=== PATIENT | female | born 2005 | race Caucasian/White ===

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

== ENCOUNTER 2025-08-08 01:59 | Emergency (ER) | payer OTHER ==
[~2025-08-08] VITALS: Ht 157.5 cm; Wt 65.8 kg
[2025-08-08] MEDS ORDERED: Albuterol 2.5 MG/3 ML VIAL INH SCH (02:20)
[2025-08-08 03:07] LABS: Influenza A, PCR NEGATIVE (NEGATIVE); Influenza B, PCR NEGATIVE (NEGATIVE); Resp Syncytial Virus, PCR NEGATIVE (NEGATIVE); SARS-Cov-2 (COVID-19) PCR, MMC NEGATIVE (NEGATIVE)
[2025-08-08 03:43] VITALS: BP 123/76
[2025-08-08] MEDS ORDERED: METPRE4DP PO (03:43)
[2025-08-08] MEDS ORDERED: RX Prepack Albuterol 1 PREPACK/6.7 GM INH UD ONE (03:45)
== END 2025-08-08 04:00 | disposition home or self-care (01) ==
LOC: ER 01:59
PROVIDERS: Emergency Medicine
DX: J45.901 Unspecified asthma with (acute) exacerbation (principal); Z59.89 Other problems related to housing and economic circumstances
CPT/HCPCS: 87637; 99285-25; A9270; J7512